=== PATIENT | female | born 1990 | race Two or more races ===

== ENCOUNTER 2024-02-18 04:50 | Emergency (ER) | payer BC ==
[~2024-02-18] VITALS: Ht 167.6 cm; Wt 74.8 kg
[2024-02-18] MEDS ORDERED: KETOROLAC TROMETHAMINE 30 MG VIAL IV STA (06:59)
[2024-02-18 07:30] LABS: HEMATOCRIT 41.9 % (36.0-45.00); HEMOGLOBIN 14.4 g/dL (12.0-15.00); MEAN CELL VOLUME 96.8 fL (80.00-100.00); MEAN CORPUSCULAR HEMOGLOBIN 33.3 pg (27.00-32.0); MEAN CORPUSCULAR HGB CONC 34.4 g/dl (32.0-36.0); PLATELET COUNT 232 K/uL (150-450); RED BLOOD COUNT 4.33 M/uL (4.00-6.00); RED CELL DISTRIBUTION WIDTH 12.6 % (11.5-14.5)
[2024-02-18] MEDS ORDERED: AMOX-CLAV 875-1 EACH PO (09:11)
[2024-02-18] MEDS ORDERED: DUI500 PO (09:15)
[2024-02-18] MEDS ORDERED: CEFTRIAXONE SODIUM 1,000 MG VIAL IM ONE (09:15)
== END 2024-02-18 09:21 | disposition home or self-care (01) ==
LOC: ER 04:51
PROVIDERS: General Practice
DX: J02.9 Acute pharyngitis, unspecified (principal)